=== PATIENT | female | born 1960 | race Caucasian/White ===

== ENCOUNTER → 2021-01-14 | Day surgery (SDC) | payer OTHER ==
[~2021-01-14] MED LIST: ALBUTEROL2.5 MG/3 M INH; AMITRIPTYLINE H25 MG PO; CHLORTHALIDONE25 MG PO; CLOBETASOL 0.05% TD; CYANOCOBAL1000 MCG/1 IM; CYANOCOBAL1000 MCG/1 INJ; ESTRADIOL1 EAC1 TD; HYGROTON TAB 2525 MG PO; IMODIUM CAP 2 MG2 MG PO; KEFLEX CAP 500500 MG PO; LEVOTHYROXINE125 MC1 PO; LIVALO4 MG PO; LORTAB 5-325 M1 EACH PO; NEURONTIN300 MG PO; ONDANSETRON ODT4 MG SL; PEPCID40 MG PO; PHENERGAN 25 MG25 M1 PO; PREMARIN VAG CR30 GM EXT; PRISTIQ 50 MG T50 MG PO; PRISTIQ ER100 MG PO; PROMETRIUM 200200 MG PO; PROMETRIUM200 MG PO; PROTONIX40 MG PO; SUCRALFATE1 GM/10 ML PO; SYNTHROID100 MCG PO; VIMOVO DR 500-1 EACH PO; ZIPSOR25 MG PO; [UNRECOGNIZED DRUG - OTHER]
== END | disposition home or self-care (01) ==
LOC: OR 06:13
PROVIDERS: Surgery
PROC: 0DJD8ZZ Inspection of Lower Intestinal Tract, Via Natural or Artificial Opening Endoscopic (ICD-10-PCS; principal; 2021-01-14 08:00)
PROC: 0DB78ZX Excision of Stomach, Pylorus, Via Natural or Artificial Opening Endoscopic, Diagnostic (ICD-10-PCS; principal; 2021-01-14 08:00)
DX: K21.9 Gastro-esophageal reflux disease without esophagitis (principal); K31.9 Disease of stomach and duodenum, unspecified; K44.9 Diaphragmatic hernia without obstruction or gangrene; K31.7 Polyp of stomach and duodenum; K29.70 Gastritis, unspecified, without bleeding; F32.9 Major depressive disorder, single episode, unspecified; E78.5 Hyperlipidemia, unspecified; I10 Essential (primary) hypertension; G47.00 Insomnia, unspecified; G25.81 Restless legs syndrome; G43.909 Migraine, unspecified, not intractable, without status migrainosus; E03.9 Hypothyroidism, unspecified; M19.90 Unspecified osteoarthritis, unspecified site; Z88.2 Allergy status to sulfonamides; Z88.8 Allergy status to other drugs, medicaments and biological substances; Z79.899 Other long term (current) drug therapy; Z87.891 Personal history of nicotine dependence; Z20.822 Contact with and (suspected) exposure to COVID-19; Z86.010 Personal history of colon polyps
CPT/HCPCS: J2704; J7030

== ENCOUNTER → 2021-11-07 | Outpatient (CLI) | payer OTHER | LOC: KOH-I 10:55 | DX: J18.9 Pneumonia, unspecified organism (principal); R91.8 Other nonspecific abnormal finding of lung field | CPT/HCPCS: 71046 ==

== ENCOUNTER → 2022-04-13 | Outpatient (CLI) | payer OTHER | LOC: EMI 04-06 09:45 | DX: M51.16 Intervertebral disc disorders with radiculopathy, lumbar region (principal); M48.061 Spinal stenosis, lumbar region without neurogenic claudication | CPT/HCPCS: 72148 ==